=== PATIENT | male | born 1975 ===

== ENCOUNTER 2022-06-07 00:39 | Day surgery (SDC) | payer BC, SELFPAY ==
[2022-05-31 08:39] VITALS: BMI 25.1
[2022-06-07 11:53] VITALS: BP 123/73; PULSE 60; RESP 18; TEMP 36.4; O2SAT 100
[2022-06-07] MEDS: LACTATED RINGERS 1,000 ML 150 ML IV CONT (12:15)
--- NOTE | 2022-06-07 12:35 | WPDANESEPPF ---
Anes - Initial Pre Proc Eval Procedure: Operation Date: 06/07/22 14:15 Proposed Procedures p Colonoscopy With - Michael Saenz MD s Possible IRC Hemorrhoid Treatment - Michael Saenz MD Date/Time: 06/07/22 12:35 Surgeon: Michael Saenz MD Pre Op Diagnosis: Hematochezia, hemorrhoids Patient Data Age: 46 Gender: M Height: 1.85 m Weight: 87.2 kg Last Vital Signs Temp 97.5 F L 06/07/22 11:53 Pulse 60 06/07/22 11:53 Resp 18 06/07/22 11:53 BP 123/73 06/07/22 11:53 Pulse Ox 100 06/07/22 11:53 O2 Del Method Room Air 06/07/22 11:53 Allergies Allergy/AdvReac Type Severity Reaction Status Date / Time No Known Allergies Allergy Mild Verified 05/31/22 08:40 Home Medications Medication Instructions Recorded Confirmed Type omeprazole 20 mg capsule,delayed 20 mg PO BID 04/26/22 06/07/22 History release Patient hx anesthesia problems: none Family hx anesthesia problems: none Results Review: All pre-operative results and documents have been reviewed as part of the pre-operative evaluation. FORMERLY [facility], [facility] Past Medical History Medical History (Updated 04/26/22 @ 12:38 by Edwige Diallo APRN) Chronic GERD GERD (gastroesophageal reflux disease) Hematochezia Family History Family History (Updated 04/26/22 @ 08:43 by Julieta Gaspar CMA) Father Hypertension Mother Depression Hypertension Social History Social History (Updated 04/26/22 @ 08:44 by Julieta Gaspar CMA) Smoking status: Never smoker Alcohol intake: current Drinks per week: 20 Substance use: never Substance use type: does not use Living arrangements: with family Spiritual care concerns: No Anes - Eval Final PreProcedure Day of Procedure 06/07/22 12:35 Patient weight: normal Heart: regular rate and rhythm Lungs: clear to auscultation Airway: Mallampati scale class II Neurological: alert and oriented Last oral intake: >/= 8 hours ASA classification: II Emergent: no Anesthetic plan: proceed Anesthesia type and monitoring: general GIVS and standard monitoring Results Review: All pre-operative results and documents have been reviewed as part of the pre-operative evaluation. Informed Consent: The patient's anesthetic plan and its attendant risks and benefits were discussed with the patient/family/POA. Questions were solicited and answers provided to the satisfaction of the patient/family/POA.
--- NOTE | 2022-06-07 13:06 | PM.HPGS ---
History of Present Illness History of Present Illness Consent: Risks, benefits, and alternatives have been discussed and questions answered. Patient agrees to proceed with procedure. Chief complaint: Hematochezia, hemorrhoids Narrative: Rafael Velazco is a 46 year old male with intermittent rectal bleeding, never had colonoscopy Review of Systems Constitutional: Constitutional: Denies headache(s) and Denies weakness Eyes: Eyes: Denies blurry vision ENT: Reports Normal hearing present, Denies headache(s) and Denies neck pain Cardiovascular: Cardiovascular: Denies chest pain and Denies dyspnea Respiratory: Respiratory: Denies dyspnea Gastrointestinal: Gastrointestinal: Reports no additional gastrointestinal complaints Genitourinary: Genitourinary: Denies dysuria Musculoskeletal: Musculoskeletal: Denies neck pain Integumentary/Breasts: Skin/Breast: Denies dry skin Neurologic: Reports Normal hearing present, Denies headache(s) and Denies weakness Psychiatric: Psychiatric: Denies anxiety Endocrine: Endocrine: Denies change in body appearance Hematologic/Lymphatic: Hematologic/Lymphatic: Denies easy bleeding Allergic/Immunologic: Allergic/Immunologic: Denies urticaria PMF Past Medical History Medical History (Updated 06/07/22 @ 13:08 by Michael Saenz MD) Chronic GERD GERD (gastroesophageal reflux disease) Hematochezia Hemorrhoid Family History Family History (Updated 04/26/22 @ 08:43 by Julieta Gaspar CMA) Father Hypertension Mother Depression Hypertension Social History Social History (Updated 04/26/22 @ 08:44 by Julieta Gaspar CMA) Smoking status: Never smoker Alcohol intake: current Drinks per week: 20 Substance use: never Substance use type: does not use Living arrangements: with family Spiritual care concerns: No Meds Home Medications and Allergies Home Medications Medication Instructions Recorded Confirmed Type omeprazole 20 mg capsule,delayed 20 mg PO BID 04/26/22 06/07/22 History release Allergies Allergy/AdvReac Type Severity Reaction Status Date / Time No Known Allergies Allergy Mild Verified 05/31/22 08:40 Vital Signs Vital Signs - 24 hr 06/07/22 11:53 Temperature 97.5 F L Pulse Rate 60 Respiratory Rate 18 Blood Pressure 123/73 Pulse Oximetry 100 Oxygen Delivery Room Air Exam Const: General: comfortable and no acute distress HENMT: Face/Nose/Sinus: Normal nares present Eyes: General: appearance normal, both eyes and all related structures Neck: Neck: no JVD Resp: Auscultation: clear to auscultation bilaterally Cardio: Rate: regular rate Rhythm: regular rhythm GI: Inspection: non-distended GI Palp: Yes Soft to palpation Skin: General skin exam: normal color Neuro: General: gait normal Speech: normal speech Extrem: General: normal to inspection Psych: Mental Status: mental status grossly normal Assessment and Plan Assessment and plan (1) Hematochezia: Code(s): K92.1 - Melena Status: Acute Assessment and Plan: colonoscopy (2) Hemorrhoid: Code(s): K64.9 - Unspecified hemorrhoids Status: Acute Assessment and Plan: irc if we find internal hemorrhoids
[2022-06-07 13:31] VITALS: BP 95/61; PULSE 76; RESP 17; O2SAT 97
--- NOTE | 2022-06-07 13:31 | W.PM.PROC2 ---
Procedure Note - Detailed Date of Procedure 06/07/22 Pre-op Diagnosis Hematochezia, hemorrhoids Post-op Diagnosis Same Procedure Performed IRC of internal hemorrhoids Surgeon Michael Saenz MD Anesthesia MAC (had colonoscopy) Description of Procedure found grade II internal hemorrhoids with anoscopy, no bleeding, no fissure. Then advanced IRC probe and hemorrhoid treated at 1.5 seconds x5
[2022-06-07 13:41] VITALS: BP 99/67; PULSE 62; RESP 15; O2SAT 97
[2022-06-07 13:51] VITALS: BP 110/80; PULSE 68; RESP 15; O2SAT 97
== END 2022-06-07 14:12 | disposition home or self-care (01) ==
PROVIDERS: PCP Family Medicine; Visit Provider Internal Medicine Gastroenterology
PROC: 0DJD8ZZ Inspection of Lower Intestinal Tract, Via Natural or Artificial Opening Endoscopic (ICD-10-PCS; CPT 45378; principal; 2022-06-07 14:15)
PROC: (CPT 46930; 2022-06-07 14:15)
DX: Z12.11 Encounter for screening for malignant neoplasm of colon (principal); D12.3 Benign neoplasm of transverse colon; D12.5 Benign neoplasm of sigmoid colon; K63.5 Polyp of colon; K57.30 Diverticulosis of large intestine without perforation or abscess without bleeding; K64.8 Other hemorrhoids; K21.9 Gastro-esophageal reflux disease without esophagitis
CPT/HCPCS: 46930; 45385; 88305; J2704; J7120